=== PATIENT | female | born 1970 | race Caucasian/White ===

== ENCOUNTER 2019-10-09 05:25 | Day surgery (SDC) | payer SELFPAY ==
[2019-10-06 16:02] LABS: BASOPHILS # (AUTO) 0.1 X10'3 (0-0.2); BASOPHILS % (AUTO) 0.9 % (0-1); EOSINOPHILS # (AUTO) 0.1 X10'3 (0-0.9); EOSINOPHILS % (AUTO) 1.8 % (0-6); LYMPHOCYTES # (AUTO) 1.7 X10'3 (1.1-4.8); LYMPHOCYTES % (AUTO) 25.3 % (21-51); MEAN CORPUSCULAR HEMOGLOBIN 27.4 PG (27.0-31.0); MEAN CORPUSCULAR HGB CONC 32.7 g/dL (33.0-36.5); MEAN CORPUSCULAR VOLUME 83.6 FL (78-98); MEAN PLATELET VOLUME 8.3 FL (7.4-10.4); MONOCYTES # (AUTO) 0.4 X10'3 (0-0.9); MONOCYTES % (AUTO) 5.7 % (2-12); NEUTROPHILS # (AUTO) 4.5 X10'3 (1.8-7.7); NEUTROPHILS % (AUTO) 66.3 % (42-75); PRE OP HEMATOCRIT 35.5 % (35.0-45.0); PRE OP HEMOGLOBIN 11.6 g/dL (12.0-16.0); PRE OP PLATELET COUNT 420 X10'3 (140-440); RED BLOOD COUNT 4.24 X10'6 (4.20-5.60); RED CELL DISTRIBUTION WIDTH 16.4 % (11.5-14.5)
[2019-10-06 16:16] LABS: CLARITY,URINE CLEAR (Clear); COLOR,URINE YELLOW (Yellow); GLUCOSE, URINE NEGATIVE (Neg); KETONES,URINE NEGATIVE (Neg); LEUKOCYTE ESTERASE ,URINE NEGATIVE (Neg); NITRITES, URINE NEGATIVE (Neg); OCCULT BLOOD,URINE TRACE-INTACT (Neg); PROTEIN,URINE NEGATIVE (Neg); UROBILINOGEN,URINE 0.2 E.U/dL (0.2-1.0)
[2019-10-06 16:16] LABS: PRE OP INR 0.9 INR; PRE OP PROTIME 9.9 SECONDS (9.0-12.0)
[2019-10-06 16:20] LABS: UA COLLECTION TYPE CLN CATCH MIDSTREAM
[2019-10-06 16:23] LABS: ALBUMIN 4.3 G/DL (3.4-5.0); ALBUMIN/GLOBULIN RATIO 0.9 (1.1-1.5); ALKALINE PHOSPHATASE 60 IU/L (46-116); BLOOD UREA NITROGEN 12 MG/DL (7-18); BUN/CREATININE RATIO 17.4 (6.6-38.0); CALCIUM 9.6 MG/DL (8.5-10.1); CHLORIDE 103 MMOL/L (99-107); CREATININE 0.69 MG/DL (0.40-0.90); PRE OP ALT 30 U/L (30-65); PRE OP ANION GAP 12 (8-16); PRE OP AST 23 U/L (10-37); PRE OP BILIRUB, TOTAL 0.2 MG/DL (0.0-1.0); PRE OP GLUCOSE 105 MG/DL (70-104); PRE OP POTASSIUM 3.5 MMOL/L (3.4-5.1); PRE OP SODIUM 141 MMOL/L (135-145); TOTAL CARBON DIOXIDE 25.9 MMOL/L (24-32); TOTAL PROTEIN 9.1 G/DL (6.4-8.2); eGFR > 90 ML/MIN
[2019-10-06 16:29] LABS: BACTERIA,URINE NONE SEEN /HPF (Neg); RBC,URINE 0-2 /HPF (0-2); SQUAMOUS EPITHELIAL CELL,UR FEW /LPF (FEW); WBC,URINE NONE SEEN /HPF (0-4)
[2019-10-06 16:35] LABS: HCG SERUM QL NEGATIVE
[~2019-10-09] VITALS: Ht 160 cm; Wt 79.8 kg
[2019-10-09] VITALS (10 sets, daily range): BP systolic 94–133; BP diastolic 41–85
[~2019-10-09 05:25] MED LIST: IBUP-1984 PO; ringers solution, lacted 1,000 ML IV SCH
[2019-10-09] MEDS ORDERED: ceFOXitin 2 GM ADDvantage bag 100 ML IV ONE (05:30)
[2019-10-09] MEDS ORDERED: famotidine 20mg tablet PO ONE (05:30)
[2019-10-09] MEDS ORDERED: ceFOXitin 2 GM ADDVANTGE BAG 50 ML IV ONE (05:30)
[2019-10-09] MEDS ORDERED: tranexamic acid inj. 1,000 MG in normal saline 100 ML IV ONE (05:30)
[2019-10-09] MEDS ORDERED: LIDOcaine 1% (10mg/ml) 2ml vial ONE (05:53)
[2019-10-09] MEDS ORDERED: BUPIVAcaine/PF 2.5 mg/ml (0.25%) 30ml vial ONE (06:39)
[2019-10-09] MEDS ORDERED: scopolamine 1.5mg patch.TD72 TD ONE (07:20)
[2019-10-09] MEDS ORDERED: aprepitant 40mg capsule PO ONE ×2 (07:22→07:25)
[2019-10-09] MEDS ORDERED: sevoflurane 250ml liquid IH ONE (07:24)
[2019-10-09] MEDS ORDERED: fentaNYL /PF 50mcg/ml 5ml ampule ONE (07:25)
[2019-10-09] MEDS ORDERED: midazolam 2 mg/2 ml injection ONE (07:25)
[2019-10-09] MEDS ORDERED: rocuronium 10mg/ml inj IV ONE (07:25)
[2019-10-09] MEDS ORDERED: propofol inj 20 ML IV ONE (07:26)
[2019-10-09] MEDS ORDERED: ringers solution, lacted 1,000 ML IV SCH (08:07)
[2019-10-09] MEDS ORDERED: proCHLORperazine 10 MG/2 ml inj IV PRN (08:10)
[2019-10-09] MEDS ORDERED: ondansetron/PF 4mg/2ml inj IV PRN (08:10)
[2019-10-09] MEDS ORDERED: morphine 4 MG/ML inj SYRINge IV PRN ×2 (08:10)
[2019-10-09] MEDS ORDERED: meperidine/PF 25mg/ml syringe IV PRN ×3 (08:10)
[2019-10-09] MEDS ORDERED: dexamethasone sod phosphate 4mg/ml inj. ONE (09:46)
[2019-10-09] MEDS ORDERED: ondansetron/PF 4mg/2ml inj ONE (09:47)
[2019-10-09] MEDS ORDERED: acetaminophen 1,000mg/100ml IV 100 ML IV ONE (09:47)
--- NOTE | 2019-10-09 10:09 | NUR ---
Received from OR via , accompanied by Anesthesiologist DR SOTOMAYOR and report given by Anesthesiolgist. AWAKENS TO VOICE. VITALS STABLE. DRESSINGS DI. JOZEF Henderson[AIN. ABD SOFT.
--- NOTE | 2019-10-09 11:59 | NUR ---
AWAKE AND ORIENTED. VITALS STABLE. DRESSING DI. JOZEF PAIN. HOME WITH HER BROTHER AT THIS TIME.
== END 2019-10-09 11:59 | disposition home or self-care (01) ==
LOC: PAS 05:25
PROVIDERS: ATTEND Obstetrics & Gynecology
DX: N92.1 Excessive and frequent menstruation with irregular cycle (principal); D25.0 Submucous leiomyoma of uterus; N83.8 Other noninflammatory disorders of ovary, fallopian tube and broad ligament; D64.9 Anemia, unspecified; N87.9 Dysplasia of cervix uteri, unspecified; M19.90 Unspecified osteoarthritis, unspecified site; J45.909 Unspecified asthma, uncomplicated; E66.9 Obesity, unspecified; Z68.32 Body mass index [BMI] 32.0-32.9, adult; Z88.2 Allergy status to sulfonamides; Z88.8 Allergy status to other drugs, medicaments and biological substances; Z79.899 Other long term (current) drug therapy; Z98.890 Other specified postprocedural states
CPT/HCPCS: 36415; 58145; 58570; 80053; 81001; 82948; 84703; 85025; 85610; 85730; 86885; 86900; 86901; 86920; A6402; C1758; J0131; J0694; J0780; J1100; J2001; J2175; J2250; J2405; J2704; J3010; J3490; J7120; J8501; S2900; A4618; A7000